=== PATIENT | female | born 1960 | race Native Hawaiian/Other Pacific Islander ===

== ENCOUNTER 2020-02-20 10:14 | Emergency (ER) | payer SELFPAY ==
[2020-02-20] MEDS ORDERED: SUBLIMAZE 100 MCG/2 ML IV ONE (10:38)
[2020-02-20] MEDS ORDERED: Zofran 4 MG/2 ML VIAL IV ONE (10:39)
[2020-02-20] MEDS ORDERED: Zofran 4 MG/2 ML VIAL ONE (10:46)
[2020-02-20] MEDS ORDERED: SUBLIMAZE 100 MCG/2 ML ONE (10:46)
[2020-02-20 11:03] LABS: ALBUMIN 3.6 g/dL (3.5-5.0); ALKALINE PHOSPHATASE 111 U/L (38-126); ANION GAP 9.7 MEQ/L (5-15); Absolute Neutrophil Ct (ANC) 2.84 (1.4-6.9); BASOPHIL % 0.2 % (0.0-0.4); BLOOD UREA NITROGEN 8 mg/dL (7-17); Basophil (Absolute #) 0.01 (0-0.4); CHLORIDE 99 mmol/L (98-107); Calcium 8.7 mg/dL (8.4-10.2); Carbon Dioxide 27 mmol/L (22-30); Creatinine 1 0.55 mg/dL (0.52-1.04); EST GLOMERULAR FILTRATION RATE > 60.0 ML/MIN; Eosinophil % 0.9 % (0.00-5.0); Eosinophil (Absolute #) 0.04 (0-0.5); Glucose 278 mg/dL (74-106); Hematocrit 40.8 % (35-47); Hemoglobin 13.1 gm/dl (12.0-16.0); Lymphocyte (Absolute #) 1.12 (1.0-4.6); Lymphocytes % 24.7 % (24.0-44.0); Mean Cell Volume 88.5 fl (78-100); Mean Corpuscular Hemoglobin 28.4 pg (26-32); Mean Corpuscular Hgb Concent. 32.1 g/dl (32-36); Mean Platelet Volume 10.5 fl (7.5-11.0); Monocyte (Absolute #) 0.52 (0.0-1.3); Monocytes % 11.5 % (0.0-12.0); Neutrophil % 62.7 % (36.0-66.0); Platelet Count 170 K/mm3 (150-450); Potassium 3.6 mmol/L (3.5-5.1); Red Blood Count 4.61 M/mm3 (4.1-5.4); Red Cell Distribution Width 13.3 % (11.5-14.0); SGOT/AST 43 U/L (14-36); SGPT/ALT 29 U/L (0-35); SODIUM 132 mmol/L (137-145); Total Protein 6.7 g/dL (6.3-8.2); White Blood Count 4.5 K/mm3 (4.0-10.5)
[2020-02-20 11:05] VITALS: O2SAT 90
[2020-02-20] MEDS ORDERED: XYLOCAINE 1% HCL 20 ML MDV ONE (11:09)
--- NOTE | 2020-02-20 11:52 | ERPHSYRPT ---
- History of Present Illness Source: patient Exam Limitations: no limitations Patient Subjective Stated Complaint: Pt states she noticed boil near vagina approximately 9-10 days ago. got worse 7 days ago. Began having blood tinged drainage. Also feels like she has yeast infection. Pt reports fatigue, chills, general body aches and pain. Denies known fever. Triage Nursing Assessment: Pt has large hardened area under right buttock into perineum. Measures approximately 7cm x 5cm. Drainage noted. Pt entire perineal area reddened. Physician History: 59 yo wf w perineal/R gluteal abscess x 1 week. Pt has a h/o HTN/Obesity/DM. Pt denies fever/cough/coryza but has had myalgias and dysuria. Timing/Duration: week(s) (1week) Quality: painful Severity: moderate Location: other (Perineal/R gluteal) Possible Causes: no cause identified Modifying Factors: Worsens With: antihistamine, calamine lotion, prednisone, scratching, topical steriods Associated Symptoms: headache, No blisters, No change in skin texture, No difficulty breathing, No edema, No fever, No flushing, No hives, No jaundice, No malaise, No nasal congestion, No numbness, No pallor, No paresthesia, No petechiae, No rash, No sore throat Allergies/Adverse Reactions: No Known Drug Allergies Allergy (Unverified 02/20/20 11:28) Home Medications: Fluoxetine HCl 20 mg [Prozac 20 MG] 20 mg PO DAILY 02/20/20 [History] Losartan Potassium 50 mg [Cozaar 50 MG] 50 mg PO DAILY 02/20/20 [History] Hx Tetanus, Diphtheria Vaccination/Date Given: No Hx Influenza Vaccination/Date Given: No Hx Pneumococcal Vaccination/Date Given: No Travel Risk - International Travel Have you traveled outside of the country in past 3 weeks: No (N) If Yes, where;: N - Coronavirus Screening Are you exhibiting any of the following symptoms?: No Close contact with a COVID-19 positive Pt in past 14-21 Days: No - Review of Systems Constitutional: No Symptoms, Chills, Fatigue Eyes: No Symptoms Ears, Nose, & Throat: No Symptoms Respiratory: No Symptoms Cardiac: No Symptoms Abdominal/Gastrointestinal: No Symptoms Musculoskeletal: No Symptoms Neurological: No Symptoms Psychological: No Symptoms Endocrine: No Symptoms Hematologic/Lymphatic: No Symptoms Immunological/Allergic: No Symptoms - Past Medical History Cardiac History: Hypertension Psycho-Social History: Depression - Past Surgical History Female Surgical History: Tubal Ligation - Social History Smoking Status: Former smoker (2ppd until 2019) Drug Use: none Patient Lives Alone: No Significant Family History: no pertinent family hx - Female History Hx Last Menstrual Period: post jack Hx Now: No - Nursing Vital Signs Nursing Vital Signs: Initial Vital Signs Temperature 99.6 F 02/20/20 10:20 Pulse Rate 86 02/20/20 10:20 Respiratory Rate 18 02/20/20 10:20 Blood Pressure 128/89 02/20/20 10:20 Pain Scale Pain Intensity 1 - Physical Exam General Appearance: no apparent distress (Mild pain) Eye Exam: PERRL/EOMI, eyes nml inspection Ears, Nose, Throat Exam: normal ENT inspection Neck Exam: normal inspection, non-tender, supple, full range of motion, No meningismus, No mass, No Brudzinski, No Kernig's Respiratory Exam: normal breath sounds, lungs clear, airway intact, No respiratory distress Cardiovascular Exam: regular rate/rhythm, normal heart sounds, normal peripheral pulses, No murmur Gastrointestinal/Abdomen Exam: soft (Mobidly obese) Back Exam: normal inspection, normal range of motion, No CVA tenderness, No vertebral tenderness Extremity Exam: normal inspection, normal range of motion Neurologic Exam: alert, oriented x 3, cooperative, global category manager II-XII nml as tested, normal mood/affect, sensation nml, No motor deficits, No sensory deficit Lymphatic Exam: No adenopathy SpO2 Interpretation: borderline oxygenation SpO2: 90 O2 Delivery: Room Air Procedures - Incision and Drainage Timeout: Performed Site: R perineal/gluteal fold Anesthesia: 1% Lidocaine cc's of anesthesia: 5 Blade Size: 11 I & D Procedure: hibiclens prep Results: other (Exudate/Blood) Progress: Pt premedicated w 50mcg IV Fentanyl/4mg IV Zofran - Course Nursing assessment & vital signs reviewed: Yes Ordered Tests: Active Orders 24 hr Category Date Time Status IV Insertion STAT Care 02/20/20 11:29 Completed Oxygen-ED Only Nasal Cannula 2 lpm Care 02/20/20 11:29 Completed CBC W DIFF Stat Lab 02/20/20 10:36 Completed CMP Stat Lab 02/20/20 10:36 Completed CULTURE,URINE Stat Lab 02/20/20 11:56 Received UA W/RFX UR CULTURE Stat Lab 02/20/20 11:56 Completed Medication Summary Discontinued Medications Generic Name Dose Route Start Last Admin Trade Name Mono PRN Reason Stop Dose Admin Fentanyl Citrate 50 mcg 02/20/20 10:38 02/20/20 10:53 Sublimaze 100 Mcg/2 Ml IV 02/20/20 10:39 50 mcg STAT ONE Administration Fentanyl Citrate Confirm 02/20/20 10:46 Sublimaze 100 Mcg/2 Ml Administered 02/20/20 10:47 Dose 100 mcg .ROUTE .STK-MED ONE Ceftriaxone Sodium/Dextrose 1 g in 50 mls @ 100 mls/hr 02/20/20 12:21 02/20/20 12:45 Rocephin 1 Gm-D5w 50 Ml Bag IV 02/20/20 12:50 Infused STAT STA Infusion Ceftriaxone Sodium/Dextrose Confirm 02/20/20 12:24 Rocephin 1 Gm-D5w 50 Ml Bag Administered 02/20/20 12:25 Dose 1 g in 50 mls @ ud IV .STK-MED ONE Lidocaine HCl Confirm 02/20/20 11:09 Xylocaine 1% Hcl 20 Ml Mdv Administered 02/20/20 11:10 Dose 5 ml .ROUTE .STK-MED ONE Ondansetron HCl 4 mg 02/20/20 10:39 02/20/20 10:49 Zofran 4 Mg/2 Ml Vial IV 02/20/20 10:40 4 mg STAT ONE Administration Ondansetron HCl Confirm 02/20/20 10:46 Zofran 4 Mg/2 Ml Vial Administered 02/20/20 10:47 Dose 4 mg .ROUTE .STK-MED ONE Lab/Rad Data: Laboratory Result Diagrams 02/20/20 10:36 02/20/20 10:36 Laboratory Results 02/20/20 02/20/20 02/20/20 Range/Units 11:56 10:36 10:36 WBC 4.5 (4.0-10.5) K/mm3 RBC 4.61 (4.1-5.4) M/mm3 Hgb 13.1 (12.0-16.0) gm/dl Hct 40.8 (35-47) % MCV 88.5 (78-100) fl MCH 28.4 (26-32) pg MCHC 32.1 (32-36) g/dl RDW 13.3 (11.5-14.0) % Plt Count 170 (150-450) K/mm3 MPV 10.5 (7.5-11.0) fl Gran % 62.7 (36.0-66.0) % Eos # (Auto) 0.04 (0-0.5) Absolute Lymphs (auto) 1.12 (1.0-4.6) Absolute Monos (auto) 0.52 (0.0-1.3) Lymphocytes % 24.7 (24.0-44.0) % Monocytes % 11.5 (0.0-12.0) % Eosinophils % 0.9 (0.00-5.0) % Basophils % 0.2 (0.0-0.4) % Absolute Granulocytes 2.84 (1.4-6.9) Basophils # 0.01 (0-0.4) Sodium 132 L (137-145) mmol/L Potassium 3.6 (3.5-5.1) mmol/L Chloride 99 (98-107) mmol/L Carbon Dioxide 27 (22-30) mmol/L Anion Gap 9.7 (5-15) MEQ/L BUN 8 (7-17) mg/dL Creatinine 0.55 (0.52-1.04) mg/dL Estimated GFR > 60.0 ML/MIN Glucose 278 H (74-106) mg/dL Calcium 8.7 (8.4-10.2) mg/dL Total Bilirubin 0.40 (0.2-1.3) mg/dL AST 43 H (14-36) U/L ALT 29 (0-35) U/L Alkaline Phosphatase 111 (38-126) U/L Serum Total Protein 6.7 (6.3-8.2) g/dL Albumin 3.6 (3.5-5.0) g/dL Urine Color LEYDA (YELLOW) Urine Appearance CLOUDY (CLEAR) Urine pH 5.0 (5-6) Ur Specific [place] 1.030 (1.005-1.025) Urine Protein 100 (Negative) Urine Ketones TRACE (NEGATIVE) Urine Blood MODERATE (0-5) Segundo/ul Urine Nitrite NEGATIVE (NEGATIVE) Urine Bilirubin NEGATIVE (NEGATIVE) Urine Urobilinogen NEGATIVE (0-1) mg/dL Ur Leukocyte Esterase LARGE (NEGATIVE) Urine WBC (Auto) 51-100 (0-5) /HPF Urine RBC (Auto) 26-50 (0-2) /HPF U Epithel Cells (Auto) MODERATE (FEW) /HPF Urine Bacteria (Auto) MODERATE (NEGATIVE) /HPF Urine Mucus (Auto) SLIGHT (NEGATIVE) /HPF Urine Yeast (Budding) Few (NEGATIVE) /HPF Urine Culture Reflexed YES (NO) Urine Glucose 50 (NEGATIVE) mg/dL - Progress Progress: improved Progress Note: 02/20/20 12:35 1gm IV Rocephin 02/20/20 16:35 Pt premedicated w 50umg IV Fentanyl/4mg IV Zofran before the procedure. Before premedication, pt verbally consented to procedure after risks/benefits explained. 02/20/20 16:38 Counseled pt/family regarding: lab results, need for follow-up - Departure Departure Disposition: Home Clinical Impression: Incision and Drainage of abscess, Urinary tract infection Condition: Stable Critical Care Time: No Referrals: DENNIS GUZMAN NP [Primary Care Provider] - Instructions: Urinary Tract Infection, Adult (DC), Abscess Incision and D rainage (DC) Additional Instructions: Start Bactrim twice a day Wash area with soap/water 2-3 times a day Area will drain, which is good Follow up with your family MD in 1-2 days Return to ER for increasing pain/swelling/temperature greater than 100.5 Forms: Work/School Release Form Prescriptions: Hydrocodone/APAP 5-325 Tab^^^ [Linden 5-325 Tablet^^^] 1 each PO Q4HPRN PRN #6 tablet MDD 6 PRN Reason: Pain Sulfamethoxazole/Trimethoprim [Bactrim Ds Tablet] 1 each PO BID #14 tablet
[2020-02-20 12:20] LABS: Appearance CLOUDY (CLEAR); Bacteria MODERATE /HPF (NEGATIVE); Bilirubin NEGATIVE (NEGATIVE); Blood MODERATE Ery/ul (0-5); Epithelial Cells MODERATE /HPF (FEW); Glucose 50 mg/dL (NEGATIVE); Ketones TRACE (NEGATIVE); Leukocyte Esterase LARGE (NEGATIVE); Mucus SLIGHT /HPF (NEGATIVE); Nitrite NEGATIVE (NEGATIVE); Protein,Urine Dip 100 (Negative); RBC 26-50 /HPF (0-2); Urobilinogen NEGATIVE mg/dL (0-1); WBC 51-100 /HPF (0-5)
[2020-02-20 12:21] LABS: Budding Yeast Few /HPF (NEGATIVE)
[2020-02-20] MEDS ORDERED: ROCEPHIN 1 Gm-D5w 50 ml Bag** 1 G/50 ML IVPB IV STA (12:21)
[2020-02-20] MEDS ORDERED: ROCEPHIN 1 Gm-D5w 50 ml Bag** 1 G/50 ML IVPB IV ONE (12:24)
[2020-02-20 12:37] VITALS: BP 128/81; PULSE 80
== END 2020-02-20 13:00 | disposition home or self-care (01) ==
LOC: ED 10:14
DX: L02.31 Cutaneous abscess of buttock (principal); N39.0 Urinary tract infection, site not specified; I10 Essential (primary) hypertension; E11.9 Type 2 diabetes mellitus without complications; M79.18 Myalgia, other site; R30.0 Dysuria; Z79.899 Other long term (current) drug therapy
CPT/HCPCS: 10060; 36000; 36415; 80053; 81001; 85025; 87077; 87086; 87186; 96365; 96374; 96375; 99284; J0696; J2405; J3010

== ENCOUNTER 2020-02-27 10:52 | Inpatient (IN) | payer SELFPAY ==
[2020-02-27] MEDS ORDERED: ROCEPHIN 1 Gm-D5w 50 ml Bag** 1 G/50 ML IVPB IV STA (11:14)
[2020-02-27] MEDS ORDERED: Zithromax 500 MG/ 250 ML NaCl Premix 500 MG/250 ML IVPB IV STA (11:14)
[2020-02-27] MEDS ORDERED: Decadron 4 MG INJ IV ONE (11:16)
[2020-02-27] MEDS ORDERED: REMDESIVIR 200 MG in Sodium Chloride 0.9% 250 ML 250 ML IV ONE (11:16)
[2020-02-27] MEDS ORDERED: VENTOLIN COMMON CANISTER IH STA (11:16)
[2020-02-27] MEDS ORDERED: ROCEPHIN 1 Gm-D5w 50 ml Bag** 1 G/50 ML IVPB IV ONE (11:38)
[2020-02-27] MEDS ORDERED: Decadron 4 MG INJ ONE (11:38)
--- NOTE | 2020-02-27 11:45 | ERPHSYRPT ---
- History of Present Illness Time Seen by Provider: 02/27/20 10:54 Source: patient Exam Limitations: no limitations Patient Subjective Stated Complaint: PT states "I tested positive for covid and I have been short of breath for the past week." Triage Nursing Assessment: Pt presented alert and oriented X 3, skin pwd Pt ambulates with an upright steady gait, able to speak in clear four to five word sentences pt tachypneic. Physician History: 59 years old with history of COPD, borderline diabetic presented to the ER with chief complaint of flulike symptoms going on for almost 1 week. Patient report initially started as a body aches mild cough and congestion but lately getting more and more shortness of breath with activity and today she is short of breath even at resting. She was tested for Covid which came back +2 days ago. She is complaining of generalized body aches fatigue tiredness, lack of appetite and mild diarrhea. Fever spike to T-max of 102 2 days ago but is afebrile today. She is using [id number] medication and has used one neb treatment this morning with no significant relief in shortness of breath. Timing/Duration: week(s) (1), gradual onset, worse Activities at Onset: activity, rest Severity of Dyspnea-Max: moderate Severity of Dyspnea-Current: moderate Possible Cause: no prior episodes Associated Symptoms: cough, chest pain/discomfort, fever, loss of appetite, wheezing, chills, painful breathing, tightness Allergies/Adverse Reactions: No Known Drug Allergies Allergy (Verified 02/27/20 11:03) Home Medications: Fluoxetine HCl 20 mg [Prozac 20 MG] 20 mg PO DAILY 02/20/20 [History] Losartan Potassium 50 mg [Cozaar 50 MG] 50 mg PO DAILY 02/20/20 [History] Albuterol Sulfate [Proair Hfa] 8.5 gm IH DAILY PRN 02/27/20 [History] Hx Tetanus, Diphtheria Vaccination/Date Given: No Hx Influenza Vaccination/Date Given: No Hx Pneumococcal Vaccination/Date Given: No Immunizations Up to Date: Yes Travel Risk - International Travel Have you traveled outside of the country in past 3 weeks: No - Coronavirus Screening Are you exhibiting any of the following symptoms?: Yes Symptoms: Shortness of Breath Close contact with a COVID-19 positive Pt in past 14-21 Days: No - Review of Systems Constitutional: Fever, Chills, Fatigue, Malaise, Weakness Eyes: No Symptoms Ears, Nose, & Throat: Nose Congestion Respiratory: Cough, Dyspnea, Dyspnea on Exertion (AYALA), Wheezing Cardiac: No Symptoms Abdominal/Gastrointestinal: Diarrhea Genitourinary Symptoms: No Symptoms Musculoskeletal: Myalgias Skin: No Symptoms Neurological: Headache Psychological: No Symptoms Endocrine: No Symptoms Hematologic/Lymphatic: No Symptoms Immunological/Allergic: No Symptoms - Past Medical History Pertinent Past Medical History: Yes Neurological History: No Pertinent History ENT History: No Pertinent History Cardiac History: Hypertension Respiratory History: COPD Endocrine Medical History: No Pertinent History GI Medical History: No Pertinent History Psycho-Social History: Depression - Past Surgical History Past Surgical History: Yes Female Surgical History: Tubal Ligation - Social History Smoking Status: Former smoker Exposure to second hand smoke: No Drug Use: none Patient Lives Alone: No Significant Family History: no pertinent family hx - Female History Hx Now: No - Nursing Vital Signs Nursing Vital Signs: Initial Vital Signs Temperature 98.3 F 02/27/20 10:57 Pulse Rate 95 H 02/27/20 10:57 Respiratory Rate 26 H 02/27/20 10:57 Blood Pressure 154/81 02/27/20 10:57 O2 Sat by Pulse Oximetry 89 L 02/27/20 10:57 Pain Scale Pain Intensity 4 - Physical Exam General Appearance: no apparent distress, alert Eye Exam: PERRL/EOMI, eyes nml inspection Ears, Nose, Throat Exam: hearing grossly normal, nasal congestion, pharyngeal erythema Neck Exam: normal inspection, non-tender, supple, full range of motion Respiratory Exam: diminished breath sounds, accessory muscle use, crackles/rales, wheezing Cardiovascular/Chest Exam: normal heart sounds, regular rate/rhythm Abdominal/Gastrointestinal Exam: soft, normal bowel sounds, No tenderness Extremity Exam: non-tender, normal range of motion, normal inspection Neurologic Exam: alert, oriented x 3, cooperative, equipment service engineer II-XII nml as tested Skin Exam: normal color SpO2 Interpretation: hypoxic, O2 applied SpO2: 89 O2 Delivery: Nasal Cannula - Course EKG Interpreted by Me: RATE, Sinus Rhythm, NORMAL AXIS, NORMAL INTERVALS, NORMAL QRS Ordered Tests: Active Orders 24 hr Category Date Time Status Bedrest with BRP/BSC TOLERATED Activity 02/27/20 14:34 Active Admit as Inpatient ROUTINE Care 02/27/20 14:34 Active Director Treasurer STAT Care 02/27/20 11:15 Completed EKG-ER Only STAT Care 02/27/20 11:14 Completed IV Care Q6H Care 02/27/20 14:34 Active IV Insertion STAT Care 02/27/20 11:14 Completed IV Insertion-2nd Peripheral STAT Care 02/27/20 14:34 Completed Isolation, Initiate & Maintain Q6H Care 02/27/20 14:34 Active POCT Glucose Check ACHS Care 02/27/20 14:34 Active Sequential Compression Device Q6H Care 02/27/20 14:34 Active Gerhard Hose, Apply ROUTINE Care 02/27/20 14:34 Active Vital Signs Q2H Care 02/27/20 14:34 Active Weight,Daily 0600 Care 02/27/20 14:34 Active CHEST 1 VIEW (PORTABLE) Stat Exams 02/27/20 11:15 Taken CHEST WITH CONTRAST [CT] Stat Exams 02/27/20 12:59 Taken ARTERIAL BLOOD GASES Stat Lab 02/27/20 11:14 Completed BLOOD CULTURE Stat Lab 02/27/20 12:00 Received CBC W DIFF AM.LAB Lab 02/28/20 04:00 Ordered CBC W DIFF Stat Lab 02/27/20 11:45 Completed CMP AM.LAB Lab 02/28/20 04:00 Ordered CMP Stat Lab 02/27/20 11:45 Completed D-DIMER QUANTITATIVE Stat Lab 02/27/20 11:45 Completed Lactic Acid Stat Lab 02/27/20 11:14 Completed MAGNESIUM Stat Lab 02/27/20 11:45 Completed Manual Differential NC Stat Lab 02/27/20 11:45 Completed NT PRO BNP Stat Lab 02/27/20 11:45 Completed PROTIME WITH INR Stat Lab 02/27/20 11:45 Completed PTT Stat Lab 02/27/20 11:45 Completed TROPONIN Q3H Lab 02/27/20 11:45 Completed TROPONIN Q3H Lab 02/27/20 14:26 Completed TROPONIN Q3H Lab 02/27/20 17:15 Ordered TROPONIN Q3H Lab 02/27/20 20:15 Ordered TROPONIN Q3H Lab 02/27/20 23:15 Ordered UA W/RFX UR CULTURE Stat Lab 02/27/20 15:00 Completed Respiratory MDI UD RT 02/27/20 12:21 Completed Respiratory Therapy Assessment DAILY RT 02/27/20 11:55 Completed Respiratory Therapy Consult ROUTINE RT 02/27/20 14:34 Completed Transfer Order Routine Transfer 02/27/20 Completed Medication Summary Generic Name Dose Route Start Last Admin Trade Name Freq PRN Reason Stop Dose Admin Acetaminophen 1,000 mg 02/27/20 15:28 Tylenol Extra Strength 500 Mg PO 03/28/20 15:27 Q4H PRN PRN PAIN AND/OR FEVER Albuterol Sulfate 4 puff 02/27/20 14:49 Ventolin Common Canister IH 03/28/20 14:48 Q4H PRN PRN SHORTNESS OF BREATH/WHEEZING Dexamethasone Sodium Phosphate 4 mg 02/28/20 10:00 Decadron 4 Mg Inj IV 03/29/20 09:59 Q12HT [facility] Enoxaparin Sodium 80 mg 02/27/20 16:00 Enoxaparin Sodium SQ 03/28/20 15:59 Q24H [facility] Fluoxetine HCl 20 mg 02/28/20 10:00 Prozac 20 Mg PO 03/29/20 09:59 DAILY [facility] Ceftriaxone Sodium/Dextrose 1 g in 50 mls @ 100 mls/hr 02/28/20 10:00 Rocephin 1 Gm-D5w 50 Ml Bag IV 03/29/20 09:59 Q24H10 [facility] Azithromycin 500 mg in 250 mls @ 250 mls/hr 02/28/20 10:00 Zithromax 500 Mg/ 250 Ml Nacl Premix IV 03/29/20 09:59 Q24H10 [facility] Remdesivir 100 mg/ Sodium 100 mls @ 100 mls/hr 02/28/20 14:00 Chloride IV 03/02/20 14:59 Q24H [facility] Insulin Human Lispro 0 unit 02/27/20 14:34 Humalog SQ 03/28/20 14:33 UD PRN HYPERGLYCEMIA Lorazepam 2 mg 02/27/20 15:28 Ativan 1 Mg PO 03/28/20 15:27 HS PRN PRN Losartan Potassium 50 mg 02/28/20 10:00 Cozaar 50 Mg PO 03/29/20 09:59 DAILY [facility] Ondansetron HCl 4 mg 02/27/20 15:29 Zofran 4 Mg/2 Ml Vial IV 03/28/20 15:28 Q4H PRN [facility] Pantoprazole Sodium 40 mg 02/27/20 15:00 Protonix 40 Mg Iv IV 03/28/20 14:59 Q24H10 [facility]ERY[facility] Discontinued Medications Generic Name Dose Route Start Last Admin Trade Name Freq PRN Reason Stop Dose Admin Acetaminophen 650 mg 02/27/20 14:34 Tylenol 325 Mg PO 03/28/20 14:33 Q4H PRN PRN PAIN AND/OR FEVER Albuterol Sulfate 4 puff 02/27/20 11:16 02/27/20 11:45 Ventolin Common Canister IH 02/27/20 11:17 4 puff ONCE STA Administration Dexamethasone Sodium Phosphate 6 mg 02/27/20 11:16 02/27/20 11:46 Decadron 4 Mg Inj IV 02/27/20 11:17 6 mg STAT ONE Administration Dexamethasone Sodium Phosphate Confirm 02/27/20 11:38 Decadron 4 Mg Inj Administered 02/27/20 11:39 Dose 8 mg .ROUTE .STK-MED ONE Ceftriaxone Sodium/Dextrose 1 g in 50 mls @ 100 mls/hr 02/27/20 11:14 02/27/20 12:21 Rocephin 1 Gm-D5w 50 Ml Bag IV 02/27/20 11:43 Infused STAT STA Infusion Azithromycin 500 mg in 250 mls @ 250 mls/hr 02/27/20 11:14 02/27/20 13:26 Zithromax 500 Mg/ 250 Ml Nacl Premix IV 02/27/20 12:13 Infused STAT STA Infusion Remdesivir 200 mg/ Sodium 250 mls @ 125 mls/hr 02/27/20 11:16 02/27/20 14:04 Chloride IV 02/27/20 13:15 125 mls/hr ONCE ONE Administration Ceftriaxone Sodium/Dextrose Confirm 02/27/20 11:38 Rocephin 1 Gm-D5w 50 Ml Bag Administered 02/27/20 11:39 Dose 1 g in 50 mls @ ud IV .STK-MED ONE Azithromycin Confirm 02/27/20 11:48 Zithromax 500 Mg/ 250 Ml Nacl Premix Administered 02/27/20 11:49 Dose 500 mg in 250 mls @ ud IV .STK-MED ONE Azithromycin Confirm 02/27/20 11:54 Zithromax 500 Mg/ 250 Ml Nacl Premix Administered 02/27/20 11:55 Dose 500 mg in 250 mls @ ud IV .STK-MED ONE Patient Own Med ( 0 each 02/27/20 15:00 Albuterol) IH 03/28/20 14:59 QIDRT [facility] Lab/Rad Data: Laboratory Result Diagrams 02/27/20 11:45 02/27/20 11:45 Laboratory Results 02/27/20 02/27/20 02/27/20 Range/Units 11:45 11:45 11:45 WBC (4.0-10.5) K/mm3 RBC (4.1-5.4) M/mm3 Hgb (12.0-16.0) gm/dl Hct (35-47) % MCV (78-100) fl MCH (26-32) pg MCHC (32-36) g/dl RDW (11.5-14.0) % Plt Count (150-450) K/mm3 MPV (7.5-11.0) fl Segmented Neutrophils (36.0-66.0) % Lymphocytes (Manual) (24-44) % Monocytes (Manual) (0.0-12.0) % Platelet Estimate (NORMAL) RBC Morphology PT 13.6 H (9.95-12.35) SECONDS INR 1.20 (0.8-3.0) APTT 29.5 (25.3-37.0) SECONDS D-Dimer 1023 H* (215-500) ng/mL Puncture Site pCO2 (35-45) mmHg pO2 (75-100) mmHg Base Excess (-2.0-2.0) O2 Saturation (94-100) g/dF ABG pH (7.35-7.45) ABG HCO3 (22-28) ABG O2 Sat (Measured) (95-100) % Karthikeyan Test A-a Gradient a/A Ratio Hemoglobin Carboxyhemoglobin (0.0-6.9) % THgb Methemoglobin (1.4-1.5) % Potassium 3.8 (3.5-5.1) Temperature C POC O2 Flow Rate % Sodium 134 L (137-145) mmol/L Chloride 98 (98-107) mmol/L Carbon Dioxide 27 (22-30) mmol/L Anion Gap 12.5 (5-15) MEQ/L BUN 6 L (7-17) mg/dL Creatinine 0.57 (0.52-1.04) mg/dL Estimated GFR > 60.0 ML/MIN Glucose 187 H (74-106) mg/dL Lactic Acid (0.4-2.0) Calcium 8.9 (8.4-10.2) mg/dL Magnesium 2.0 (1.6-2.3) mg/dL Total Bilirubin 0.50 (0.2-1.3) mg/dL AST 64 H (14-36) U/L ALT 32 (0-35) U/L Alkaline Phosphatase 114 (38-126) U/L Troponin I < 0.012 (0.000-0.034) ng/mL NT-Pro-B Natriuret Pep 36.3 (0-900) pg/mL Serum Total Protein 7.2 (6.3-8.2) g/dL Albumin 3.8 (3.5-5.0) g/dL 02/27/20 02/27/20 Range/Units 11:45 11:14 WBC 6.9 (4.0-10.5) K/mm3 RBC 5.02 (4.1-5.4) M/mm3 Hgb 14.0 (12.0-16.0) gm/dl Hct 43.9 (35-47) % MCV 87.5 (78-100) fl MCH 27.9 (26-32) pg MCHC 31.9 L (32-36) g/dl RDW 13.7 (11.5-14.0) % Plt Count 196 (150-450) K/mm3 MPV 10.5 (7.5-11.0) fl Segmented Neutrophils 63 (36.0-66.0) % Lymphocytes (Manual) 33 (24-44) % Monocytes (Manual) 4 (0.0-12.0) % Platelet Estimate NORMAL (NORMAL) RBC Morphology NORMAL PT (9.95-12.35) SECONDS INR (0.8-3.0) APTT (25.3-37.0) SECONDS D-Dimer (215-500) ng/mL Puncture Site RIGHT BRACHIAL pCO2 30 L (35-45) mmHg pO2 68 L (75-100) mmHg Base Excess 5.2 H (-2.0-2.0) O2 Saturation 93.1 L (94-100) g/dF ABG pH 7.56 H* (7.35-7.45) ABG HCO3 26.9 (22-28) ABG O2 Sat (Measured) 95.8 (95-100) % Karthikeyan Test NOT APPLICABLE A-a Gradient 151 a/A Ratio 0.31 Hemoglobin 14.0 Carboxyhemoglobin 1.7 (0.0-6.9) % THgb Methemoglobin 1.1 L (1.4-1.5) % Potassium 3.8 (3.5-5.1) Temperature 37.0 C POC O2 Flow Rate 36 % Sodium (137-145) mmol/L Chloride (98-107) mmol/L Carbon Dioxide (22-30) mmol/L Anion Gap (5-15) MEQ/L BUN (7-17) mg/dL Creatinine (0.52-1.04) mg/dL Estimated GFR ML/MIN Glucose (74-106) mg/dL Lactic Acid 1.2 (0.4-2.0) Calcium (8.4-10.2) mg/dL Magnesium (1.6-2.3) mg/dL Total Bilirubin (0.2-1.3) mg/dL AST (14-36) U/L ALT (0-35) U/L Alkaline Phosphatase (38-126) U/L Troponin I (0.000-0.034) ng/mL NT-Pro-B Natriuret Pep (0-900) pg/mL Serum Total Protein (6.3-8.2) g/dL Albumin (3.5-5.0) g/dL - Progress Progress: re-examined Air Movement: fair Progress Note: 02/27/20 12:46 Patient was hypoxic to 86% on room air with some distress. Initially placed on 2 L which increased to 88% currently on 4 L with satting around 92%. She is given steroid and inhaler treatment, started on antibiotics as her x-ray showed bilateral airspace disease consistent with COVID-19 and is given Decadron along with remdesivir. Has elevated D-dimers and CTA is done, pending results. Discussed with Dr. Garcia and patient is admitted. 02/27/20 15:33 Negative CTA chest for PE. Blood Culture(s) Obtained: Yes Antibiotics given: Yes Discussed with : Other (Dr. Goode) Counseled pt/family regarding: lab results, diagnosis, rad results - Departure Departure Disposition: In-patient Admission Clinical Impression: Acute respiratory failure with hypoxia, COVID-19 Bilateral pneumonia Qualifiers: Pneumonia type: due to unspecified organism Lung location: unspecified part of lung Qualified Code(s): J18.9 - Pneumonia, unspecified organism Condition: Stable Critical Care Time: Yes Critical Care Time(excluding separately billable procedures): Critical 30-74 mins
[2020-02-27] MEDS ORDERED: Zithromax 500 MG/ 250 ML NaCl Premix 500 MG/250 ML IVPB IV ONE ×2 (11:48→11:54)
[2020-02-27 12:05] LABS: A-aADO2 151; ABG POTASSIUM 3.8 (3.5-5.1); ARTERIAL BLD GAS O2 SATURATION 95.8 % (95-100); ARTERIAL BLOOD GAS BASE EXCESS 5.2 (-2.0-2.0); ARTERIAL BLOOD GAS FIO2 36 %; ARTERIAL BLOOD GAS PCO2 30 mmHg (35-45); ARTERIAL BLOOD GAS PO2 68 mmHg (75-100); CARBOXYHEMOGLOBIN 1.7 % THgb (0.0-6.9); HCO3- 26.9 (22-28); HGB O2 SAT 93.1 g/dF (94-100); Lactic Acid 1.2 (0.4-2.0); Methhemoglobin 1.1 % (1.4-1.5); paO2 pAO1 0.31
[2020-02-27 12:06] LABS: ARTERIAL BLOOD GAS pH 7.56 (7.35-7.45)
[2020-02-27 12:07] LABS: ABG SITE RIGHT BRACHIAL
[2020-02-27 12:08] LABS: Hematocrit 43.9 % (35-47); Mean Cell Volume 87.5 fl (78-100); Mean Corpuscular Hemoglobin 27.9 pg (26-32); Mean Corpuscular Hgb Concent. 31.9 g/dl (32-36); Mean Platelet Volume 10.5 fl (7.5-11.0); Platelet Count 196 K/mm3 (150-450); Red Blood Count 5.02 M/mm3 (4.1-5.4); Red Cell Distribution Width 13.7 % (11.5-14.0); White Blood Count 6.9 K/mm3 (4.0-10.5)
[2020-02-27 12:24] LABS: PTT 29.5 SECONDS (25.3-37.0)
[2020-02-27 12:27] LABS: INR 1.2 (0.8-3.0); PROTIME 13.6 SECONDS (9.95-12.35)
[2020-02-27 12:32] LABS: ALBUMIN 3.8 g/dL (3.5-5.0); ALKALINE PHOSPHATASE 114 U/L (38-126); ANION GAP 12.5 MEQ/L (5-15); BLOOD UREA NITROGEN 6 mg/dL (7-17); CHLORIDE 98 mmol/L (98-107); Calcium 8.9 mg/dL (8.4-10.2); Carbon Dioxide 27 mmol/L (22-30); Creatinine 1 0.57 mg/dL (0.52-1.04); EST GLOMERULAR FILTRATION RATE > 60.0 ML/MIN; Glucose 187 mg/dL (74-106); NT PRO BNP 36.3 pg/mL (0-900); Potassium 3.8 mmol/L (3.5-5.1); SGOT/AST 64 U/L (14-36); SGPT/ALT 32 U/L (0-35); SODIUM 134 mmol/L (137-145); Total Protein 7.2 g/dL (6.3-8.2)
[2020-02-27 13:17] LABS: Lymphocytes 33 % (24-44); Monocyte 4 % (0.0-12.0); Neutrophils 63 % (36.0-66.0); Total Cells Counted 100
[2020-02-27 13:18] LABS: Platelet Estimate NORMAL (NORMAL)
[2020-02-27] MEDS ORDERED: TYLENOL 325 MG PO PRN (14:34)
[2020-02-27] MEDS ORDERED: VENTOLIN COMMON CANISTER IH PRN (14:49)
[2020-02-27] MEDS ORDERED: ENOXAPARIN SODIUM SQ SCH (15:00)
[2020-02-27] MEDS ORDERED: PATIENT OWN MEDICATION IH SCH (15:00)
[2020-02-27 15:04] LABS: Appearance CLEAR (CLEAR); Bilirubin NEGATIVE (NEGATIVE); Blood NEGATIVE Ery/ul (0-5); Epithelial Cells RARE /HPF (FEW); Glucose NEGATIVE (NEGATIVE); Ketones SMALL (NEGATIVE); Leukocyte Esterase NEGATIVE (NEGATIVE); Mucus SLIGHT /HPF (NEGATIVE); Nitrite NEGATIVE (NEGATIVE); Protein,Urine Dip NEGATIVE (Negative); Specific Gravity >1.060 (1.005-1.025); Urobilinogen NEGATIVE mg/dL (0-1); WBC 0-2 /HPF (0-5)
[2020-02-27] MEDS ORDERED: Ativan 1 MG PO PRN (15:28)
[2020-02-27] MEDS ORDERED: TYLENOL EXTRA STRENGTH 500 MG PO PRN (15:28)
[2020-02-27] MEDS ORDERED: Zofran 4 MG/2 ML VIAL IV PRN (15:29)
[2020-02-27] MEDS: PROTONIX 40 MG IV IV SCH (16:09)
[2020-02-27] MEDS: ENOXAPARIN SODIUM SQ SCH (16:10)
--- NOTE | 2020-02-27 18:39 | XRAY ---
Indication: Short of breath. Multiple contiguous axial images obtained through the chest using 80 cc Isovue 370 contrast and PE protocol. Comparison: None Suboptimal opacification of the pulmonary arteries limiting evaluation of the distal branches. No central pulmonary embolus. Heart is not enlarged. Aorta is normal in course and caliber. A few tiny bilateral hilar and distal paraesophageal calcified nodes. No pathologic mediastinal/hilar lymphadenopathy. Lungs demonstrates diffuse bilateral patchy airspace disease with mild bilateral dependent atelectasis. No effusion. Bony thorax intact. Limited upper abdomen demonstrates fatty liver and splenic calcified granulomas. Impression: 1. Pulmonary embolus evaluation limited due to suboptimal opacification. No obvious central pulmonary embolus. 2. Diffuse bilateral patchy airspace disease. 3. Incidental fatty liver and old granulomatous disease. Comment: Preliminary interpretation was made by [facility]. No critical discrepancy.
--- NOTE | 2020-02-27 18:40 | XRAY ---
Indication: Short of breath. Comparison: None Portable chest demonstrates diffuse bilateral airspace disease without consolidation/large effusion. Heart is not enlarged. Bony thorax intact.
[2020-02-27] MEDS: HUMALOG SQ PRN (21:56)
[2020-02-28 05:23] LABS: ALBUMIN 3.4 g/dL (3.5-5.0); ALKALINE PHOSPHATASE 95 U/L (38-126); ANION GAP 10.4 MEQ/L (5-15); BLOOD UREA NITROGEN 10 mg/dL (7-17); CHLORIDE 102 mmol/L (98-107); Calcium 8.4 mg/dL (8.4-10.2); Carbon Dioxide 27 mmol/L (22-30); Creatinine 1 0.48 mg/dL (0.52-1.04); EST GLOMERULAR FILTRATION RATE > 60.0 ML/MIN; Glucose 237 mg/dL (74-106); Potassium 3.7 mmol/L (3.5-5.1); SGOT/AST 46 U/L (14-36); SGPT/ALT 28 U/L (0-35); SODIUM 135 mmol/L (137-145); Total Protein 6.4 g/dL (6.3-8.2)
[2020-02-28 05:25] LABS: Absolute Neutrophil Ct (ANC) 3.07 (1.4-6.9); Basophil (Absolute #) 0 (0-0.4); Eosinophil (Absolute #) 0 (0-0.5); Hematocrit 39.8 % (35-47); Hemoglobin 12.8 gm/dl (12.0-16.0); Lymphocyte (Absolute #) 1.01 (1.0-4.6); Mean Cell Volume 88.1 fl (78-100); Mean Corpuscular Hemoglobin 28.3 pg (26-32); Mean Corpuscular Hgb Concent. 32.2 g/dl (32-36); Mean Platelet Volume 10.6 fl (7.5-11.0); Monocyte (Absolute #) 0.32 (0.0-1.3); Monocytes % 7.3 % (0.0-12.0); Neutrophil % 69.7 % (36.0-66.0); Platelet Count 200 K/mm3 (150-450); Red Blood Count 4.52 M/mm3 (4.1-5.4); Red Cell Distribution Width 13.4 % (11.5-14.0); White Blood Count 4.4 K/mm3 (4.0-10.5)
[2020-02-28 05:31] LABS: INR 1.15 (0.8-3.0)
[2020-02-28 07:42] LABS: Lymphocytes 22 % (24-44); Monocyte 5 % (0.0-12.0); Neutrophils 73 % (36.0-66.0); Total Cells Counted 100
[2020-02-28 07:45] LABS: Platelet Estimate NORMAL (NORMAL)
[2020-02-28] MEDS: HUMALOG SQ PRN ×4 (08:03→22:08)
[2020-02-28] MEDS ORDERED: Zithromax 500 MG/ 250 ML NaCl Premix 500 MG/250 ML IVPB IV SCH (10:00)
[2020-02-28] MEDS ORDERED: ROCEPHIN 1 Gm-D5w 50 ml Bag** 1 G/50 ML IVPB IV SCH (10:00)
[2020-02-28] MEDS: Cozaar 50 MG PO SCH (10:42)
[2020-02-28] MEDS: Decadron 4 MG INJ IV SCH ×2 (10:42→22:08)
[2020-02-28] MEDS: PROTONIX 40 MG IV IV SCH (10:42)
[2020-02-28] MEDS: Prozac 20 MG PO SCH (10:42)
[2020-02-28] MEDS: REMDESIVIR 100 MG in Sodium Chloride 0.9% 100 ML IVPB 100 ML IV SCH (14:24)
--- NOTE | 2020-02-28 15:44 | HP ---
CHIEF COMPLAINT: Shortness of breath. HISTORY OF PRESENT ILLNESS: The patient has been short of breath for the last five days. She had outpatient COVID test positive today and was sent to the emergency room. She is 59 years old, has history of chronic obstructive pulmonary disease but quit smoking several years ago, borderline diabetes mellitus, obesity, temperature up to 102F two days ago. COVID test was probably done on . She claims her chest aches and olmstead that she cannot taste her food and she is wheezing. MEDICATIONS: Prozac 20 q.d., losartan 50 q.d., Albuterol inhaler once a day. ALLERGIES: NKDA. PAST MEDICAL HISTORY: Chronic obstructive pulmonary disease, borderline diabetes mellitus, obesity. REVIEW OF SYSTEMS: CONSTITUTIONAL: She had fever up to 102F and chills. HEENT: No problems hearing or seeing. She does have a sore throat. CHEST: Feels like she is wheezing, has chest achiness. CVS: No chest pain. No history of heart disease. ABDOMEN: Some diarrhea one day. : No problems urinating. MUSCULOSKELETAL: Achiness. No arthritis. SOCIAL HISTORY: She is and has kids. She works in [employer] but she has been working from home. She does not know of any exposure. PHYSICAL EXAMINATION: The patient is alert, orientated, very pleasant, short of breath white female. HEENT: Pupils equal and reactive to light. NECK: Supple without adenopathy. CHEST: Decreased breath sounds, crackles and rales bilateral. CVS: No murmurs or gallops. ABDOMEN: Obese. No tenderness or organomegaly. EXTREMITIES: Good color. No edema. LAB DATA AND TESTS: The patient's pro-time was 13.6 mildly elevated. INR 1.2. She is not anticoagulated. D-dimer was 1,000. Glucose 187. Blood gas showed pCO2 was 30, pO2 68 and pH 7.56. Hemoglobin 14. Potassium 3.8. Chest x-ray showed some COVID pneumonia-type findings. No deep venous thrombosis. IMPRESSION: The patient has respiratory failure with hypoxia, COVID-19, obesity, hypertension. PLAN: The patient will be started on Decadron, Remdesivir, O2 and be admitted. PROGNOSIS: Fair.
[2020-02-28] MEDS: ENOXAPARIN SODIUM SQ SCH (17:57)
[2020-02-29 06:34] LABS: Hematocrit 41.4 % (35-47); Hemoglobin 12.9 gm/dl (12.0-16.0); Mean Cell Volume 89.6 fl (78-100); Mean Corpuscular Hemoglobin 27.9 pg (26-32); Mean Corpuscular Hgb Concent. 31.2 g/dl (32-36); Mean Platelet Volume 10.5 fl (7.5-11.0); Platelet Count 259 K/mm3 (150-450); Red Blood Count 4.62 M/mm3 (4.1-5.4); Red Cell Distribution Width 13.4 % (11.5-14.0); White Blood Count 7.1 K/mm3 (4.0-10.5)
[2020-02-29 06:48] LABS: INR 1.15 (0.8-3.0)
[2020-02-29 06:56] LABS: ALBUMIN 3.4 g/dL (3.5-5.0); ALKALINE PHOSPHATASE 86 U/L (38-126); ANION GAP 12.8 MEQ/L (5-15); BLOOD UREA NITROGEN 15 mg/dL (7-17); CHLORIDE 102 mmol/L (98-107); Calcium 8.7 mg/dL (8.4-10.2); Carbon Dioxide 26 mmol/L (22-30); Creatinine 1 0.57 mg/dL (0.52-1.04); EST GLOMERULAR FILTRATION RATE > 60.0 ML/MIN; Glucose 326 mg/dL (74-106); Potassium 4.3 mmol/L (3.5-5.1); SGOT/AST 37 U/L (14-36); SGPT/ALT 29 U/L (0-35); SODIUM 137 mmol/L (137-145); Total Protein 6.5 g/dL (6.3-8.2)
[2020-02-29] MEDS: HUMALOG SQ PRN ×4 (08:46→21:25)
[2020-02-29] MEDS: Decadron 4 MG INJ IV SCH ×2 (09:23→21:25)
[2020-02-29] MEDS: Cozaar 50 MG PO SCH (09:23)
[2020-02-29] MEDS: Prozac 20 MG PO SCH (09:24)
[2020-02-29] MEDS: PROTONIX 40 MG IV IV SCH (09:24)
[2020-02-29] MEDS: REMDESIVIR 100 MG in Sodium Chloride 0.9% 100 ML IVPB 100 ML IV SCH (13:59)
[2020-02-29] MEDS: ENOXAPARIN SODIUM SQ SCH (16:04)
[2020-03-01 06:07] LABS: ALBUMIN 3.1 g/dL (3.5-5.0); ALKALINE PHOSPHATASE 77 U/L (38-126); ANION GAP 8.3 MEQ/L (5-15); BLOOD UREA NITROGEN 15 mg/dL (7-17); CHLORIDE 103 mmol/L (98-107); Calcium 8.3 mg/dL (8.4-10.2); Carbon Dioxide 29 mmol/L (22-30); Creatinine 1 0.57 mg/dL (0.52-1.04); EST GLOMERULAR FILTRATION RATE > 60.0 ML/MIN; Glucose 303 mg/dL (74-106); Potassium 4.2 mmol/L (3.5-5.1); SGOT/AST 33 U/L (14-36); SGPT/ALT 28 U/L (0-35); SODIUM 137 mmol/L (137-145); Total Protein 5.8 g/dL (6.3-8.2)
[2020-03-01 06:34] LABS: INR 1.17 (0.8-3.0); PROTIME 13.2 SECONDS (9.95-12.35)
[2020-03-01] MEDS: PROTONIX 40 MG IV IV SCH (10:51)
[2020-03-01] MEDS: Prozac 20 MG PO SCH (10:51)
[2020-03-01] MEDS: Cozaar 50 MG PO SCH (10:51)
[2020-03-01] MEDS: Decadron 4 MG INJ IV SCH (10:51)
[2020-03-01] MEDS: HUMALOG SQ PRN ×2 (10:52→13:25)
[2020-03-01] MEDS: REMDESIVIR 100 MG in Sodium Chloride 0.9% 100 ML IVPB 100 ML IV SCH (14:23)
[2020-03-01] MEDS: ENOXAPARIN SODIUM SQ SCH (18:44)
[2020-03-01 20:24] VITALS: O2SAT 94
[2020-03-01 20:45] VITALS: BP 149/76; PULSE 77
== END 2020-03-01 20:35 | disposition home or self-care (01) | DRG 177 ==
LOC: ED 10:52 → MED SURG 14:26
PROVIDERS: ADMIT Family Medicine; ATTEND Family Medicine
DX: U07.1 COVID-19 (principal); J96.01 Acute respiratory failure with hypoxia; R19.7 Diarrhea, unspecified; R53.83 Other fatigue; I10 Essential (primary) hypertension; J44.9 Chronic obstructive pulmonary disease, unspecified; Z79.899 Other long term (current) drug therapy
CPT/HCPCS: 36000; 36415; 36600; 71045; 71260; 80053; 81001; 82375; 82803; 82947; 83036; 83605; 83735; 83880; 84484; 85025; 85027; 85379; 85610; 85730; 87040; 93005; 93041; 94640; 94762; 96365; 96367; 96374; 99285; 99291; J0456; J0696; J1100; J1650; J1817; A9270-GY